=== PATIENT | male | born 1995 | race Caucasian/White ===

== ENCOUNTER 2023-05-17 08:14 | Emergency (ER) | payer OTHER ==
[~2023-05-17] VITALS: Ht 188 cm; Wt 82.0 kg
[2023-05-17 08:51] LABS: Basophils # (auto) 0 10 ^3/uL (0-0.2); Basophils % (auto) 0.3 % (0.0-2.0); Hemoglobin 17.9 g/dL (13.5-17.5); Lymphocytes # (auto) 2.1 10 ^3/uL (0.4-5.4); Neutrophils # (auto) 4.8 10 ^3/uL (1.6-8.6); White Blood Cell 7.5 10^3/uL (4.4-10.8)
[2023-05-17 08:53] LABS: Eosinophils # (auto) 0 10 ^3/uL (0-0.8); Eosinophils % (auto) 0.5 % (0.0-7.0); Hematocrit 51.4 % (41.0-53.0); Lymphocytes % (auto) 28.3 % (10.0-50.0); Mean Corpuscular Hemoglobin 29.3 pg (28.0-32.0); Mean Corpuscular Hgb Conc. 34.7 g/dL (32.0-36.0); Mean Corpuscular Volume 84.4 fL (80.0-100.0); Monocytes # (auto) 0.5 10 ^3/uL (0-1.3); Monocytes % (auto) 6.5 % (0.0-12.0); Neutrophils % (auto) 64.4 % (37.0-80.0); Nucleated Red Blood Cells % 2.2 %; Red Blood Cells 6.09 10^6/uL (4.5-5.90); Red Cell Distribution Width 13.3 % (11.8-14.3)
[2023-05-17 09:13] LABS: Alanine Aminotransferase 42 U/L (7-40); Alkaline Phosphatase 73 U/L (46-116); Anion Gap 9 (5-15); Aspartate Aminotransferase 25 U/L (13-40); BUN/Creatinine Ratio 6.7 (10.0-20.0); Blood Urea Nitrogen 8 mg/dL (9-23); Calcium 10.2 mg/dL (8.5-10.1); Carbon Dioxide 25 mmol/L (20-30); Chloride 105 mmol/L (98-107); Glucose 117 mg/dL (74-106); Potassium 3.9 mmol/L (3.5-5.1); Sodium 139 mmol/L (136-145)
[2023-05-17 09:14] LABS: Bilirubin, Total 1.2 mg/dL (0.2-1.0); Total Protein 7.9 g/dL (5.7-8.2)
[2023-05-17] MEDS ORDERED: FUROSEMIDE 40 MG/4 ML VIAL IV ONE (09:15)
[2023-05-17] MEDS ORDERED: ONDANSETRON HCL 4 MG/2 ML VIAL IV ONE ×2 (09:15→12:30)
[2023-05-17] MEDS ORDERED: KETOROLAC TROMETH 30 MG/ML 1ML VIAL IV ONE (09:15)
[2023-05-17] MEDS ORDERED: SODIUM CHLORIDE 0.9% 1,000 ML IV ONE ×3 (09:15→11:15)
[2023-05-17] MEDS ORDERED: TAMSULOSIN HYDROCHLORIDE 0.4 MG CAP PO ONE (09:30)
[2023-05-17 11:16] VITALS: RESP 19; O2SAT 99
[2023-05-17 11:16] LABS: Urine Bacteria NONE SEEN /hpf (None Seen); Urine Blood 1+ /uL (Negative); Urine Clarity HAZY (Clear); Urine Color Yellow (Yellow); Urine Mucus FEW (None Seen); Urine Protein, UAD TRACE (Negative); Urine Specific Gravity 1.019 (1.001-1.035); Urine Urobilinogen Normal (Negative); Urine WBC <1 /hpf (0 - 3); Urine pH 8.5 (5.0-8.0)
[2023-05-17] MEDS ORDERED: IBU600T PO (12:03)
[2023-05-17] MEDS ORDERED: TAMS-35 PO (12:03)
[2023-05-17] MEDS ORDERED: MORPHINE SULFATE 4 MG/ML SYR/VIAL IV ONE (12:30)
[2023-05-17] MEDS ORDERED: MANNITOL FTV 25% 12.5 GM/50 ML 50 ML IV ONE (13:15)
[2023-05-17] MEDS ORDERED: KETOROLAC TROMETH 30 MG/ML 1ML VIAL IV PRN (14:45)
[2023-05-17 17:38] VITALS: BP 121/77; PULSE 73; RESP 13; TEMP 98.7; O2SAT 99
== END 2023-05-17 18:09 | disposition home or self-care (01) ==
LOC: ER 08:14
DX: N20.0 Calculus of kidney (principal); Z88.1 Allergy status to other antibiotic agents
CPT/HCPCS: 36415; 74176; 80053; 81001; 85025; 93005; 96361; 96365; 96375; 96376; 99285; J1885; J1940; J2150; J2270; J2405; J7030

== ENCOUNTER 2024-03-29 21:10 | Emergency (ER) | payer OTHER ==
[~2024-03-29] VITALS: Ht 188 cm; Wt 84.1 kg
[~2024-03-29 21:10] MED LIST: IBU600T PO; TAMS-35 PO
[2024-03-29 22:51] LABS: Basophils # (auto) 0 10 ^3/uL (0-0.2); Basophils % (auto) 0.5 % (0.0-2.0); Eosinophils # (auto) 0.1 10 ^3/uL (0-0.8); Eosinophils % (auto) 0.8 % (0.0-7.0); Hematocrit 48.1 % (41.0-53.0); Hemoglobin 16.5 g/dL (13.5-17.5); Lymphocytes # (auto) 1.6 10 ^3/uL (0.4-5.4); Lymphocytes % (auto) 25.6 % (10.0-50.0); Mean Corpuscular Hemoglobin 29.1 pg (28.0-32.0); Mean Corpuscular Hgb Conc. 34.2 g/dL (32.0-36.0); Monocytes # (auto) 0.4 10 ^3/uL (0-1.3); Monocytes % (auto) 6.1 % (0.0-12.0); Neutrophils # (auto) 4.3 10 ^3/uL (1.6-8.6); Nucleated Red Blood Cells % 0.3 %; Red Blood Cells 5.66 10^6/uL (4.5-5.90); Red Cell Distribution Width 13.5 % (11.8-14.3); White Blood Cell 6.4 10^3/uL (4.4-10.8)
[2024-03-29 23:08] LABS: Alanine Aminotransferase 35 U/L (7-40); Albumin 4.5 g/dL (3.2-4.8); Alkaline Phosphatase 88 U/L (46-116); Anion Gap 7 (5-15); Aspartate Aminotransferase 16 U/L (13-40); Calcium 9.7 mg/dL (8.7-10.4); Carbon Dioxide 30 mmol/L (20-30); Chloride 106 mmol/L (98-107); Glucose 93 mg/dL (74-106); Potassium 3.8 mmol/L (3.5-5.1); Sodium 143 mmol/L (136-145)
[2024-03-29 23:09] LABS: Bilirubin, Total 0.5 mg/dL (0.2-1.0); Total Protein 7.2 g/dL (5.7-8.2)
[2024-03-29 23:12] LABS: BUN/Creatinine Ratio 4.5 (10.0-20.0); Blood Urea Nitrogen < 5 mg/dL (9-23)
[2024-03-30 01:35] VITALS: BP 127/85; PULSE 58; RESP 16; TEMP 98; O2SAT 100
== END 2024-03-30 01:42 | disposition home or self-care (01) ==
LOC: ER 21:10
DX: R00.2 Palpitations (principal); Z88.1 Allergy status to other antibiotic agents
CPT/HCPCS: 36415; 71045; 80053; 84484; 85025; 93005